=== PATIENT | female | born 2000 | race Caucasian/White ===

== ENCOUNTER 2023-05-01 02:26 | Emergency (ER) | payer BC ==
[2023-05-01 02:47] VITALS: TEMP 97.8
[2023-05-01 03:07] LABS: Basophils % (A) 0 %; Eosinophils # (A) 0.1 k/uL (0-0.7); Eosinophils % (A) 1 %; HCT 37.5 % (34.0-46.0); HGB 12.6 gm/dL (11.4-16.0); Lymphocytes # (A) 2.3 k/uL (1.0-4.8); Lymphocytes % (A) 22 %; MCH 29.3 pg (25.0-35.0); MCHC 33.6 g/dL (31.0-37.0); MCV 87.4 fL (80.0-100.0); Monocytes # (A) 0.5 k/uL (0-1.0); Monocytes % (A) 5 %; Neutrophils # (A) 7.4 k/uL (1.3-7.7); Neutrophils % (A) 71 %; Platelet Count 304 k/uL (150-450); RBC 4.29 m/uL (3.80-5.40); WBC 10.5 k/uL (3.8-10.6)
[2023-05-01 03:15] LABS: ALT 21 U/L (4-34); AST 23 U/L (14-36); African American GFR (CKD) >90 (>60 ml/min/1.73 sqM); Albumin 4.1 g/dL (3.5-5.0); Alkaline Phosphatase 85 U/L (38-126); Anion Gap 7 mmol/L; Blood Urea Nitrogen 15 mg/dL (7-17); Calcium 9.3 mg/dL (8.4-10.2); Carbon Dioxide 22 mmol/L (22-30); Chloride 108 mmol/L (98-107); Glucose 98 mg/dL (74-99); Non-African American GFR(CKD) 89 (>60 ml/min/1.73 sqM); Potassium 3.6 mmol/L (3.5-5.1); Sodium 137 mmol/L (137-145); Total Bilirubin 0.8 mg/dL (0.2-1.3); Total Protein 6.9 g/dL (6.3-8.2)
--- NOTE | 2023-05-01 03:16 | ED ---
Abdominal Pain HPI - General Source: patient Mode of arrival: ambulatory Limitations: no limitations <Erin Baldwin - Last Filed: 05/01/23 04:44> <Nickolas Chavez - Last Filed: 05/01/23 06:58> <Hema Stewart - Last Filed: 05/01/23 08:03> - General Chief Complaint: Abdominal Pain Stated Complaint: 4 weeks abdominal pain Time Seen by Provider: 05/01/23 02:34 - History of Present Illness Initial Comments: 22-year-old female presenting with chief complaint of abdominal pain. Patient is currently 4 weeks LMP April 02. She started having left lower quadrant pain this evening. She states that it now radiates into her back. She states that when she wiped after urinating she noticed a drop or 2 of blood, otherwise no vaginal bleeding. No dysuria, urgency, frequency. No fevers or chills. She admits to some nausea, no vomiting. (Erin Baldwin) - Related Data Previous Rx's Medication Instructions Recorded Cephalexin [Keflex] 500 mg PO Q12HR #20 cap 05/01/23 Allergies Allergy/AdvReac Type Severity Reaction Status Date / Time No Known Allergies Allergy Verified 05/01/23 02:32 Review of Systems ROS Other: All systems not noted in ROS Statement are negative. <Erin Baldwin - Last Filed: 05/01/23 04:44> ROS Other: All systems not noted in ROS Statement are negative. <Nickolas Chavez - Last Filed: 05/01/23 06:58> ROS Other: All systems not noted in ROS Statement are negative. <Hema Stewart - Last Filed: 05/01/23 08:03> ROS Statement: Those systems with pertinent positive or pertinent negative responses have been documented in the HPI. Past Medical History Past Medical History: No Reported History History of Any Multi-Drug Resistant Organisms: None Reported Past Surgical History: No Surgical Hx Reported Past Psychological History: Anxiety, Depression Smoking Status: Never smoker Past Alcohol Use History: None Reported Past Drug Use History: None Reported <Erin Baldwin - Last Filed: 05/01/23 04:44> General Exam Limitations: no limitations General appearance: alert, in no apparent distress Head exam: Present: atraumatic, normocephalic Eye exam: Present: normal appearance, EOMI Neck exam: Present: normal inspection Respiratory exam: Present: normal lung sounds bilaterally. Absent: respiratory distress, wheezes, rales, rhonchi, stridor Cardiovascular Exam: Present: regular rate, normal rhythm, normal heart sounds. Absent: systolic murmur, diastolic murmur, rubs, gallop, clicks GI/Abdominal exam: Present: soft. Absent: distended, tenderness, guarding, rebound, rigid External exam: Present: normal external exam Speculum exam: Present: normal speculum exam By manual exam: Present: normal by manual exam Back exam: Absent: CVA tenderness (R), CVA tenderness (L) Neurological exam: Present: alert, oriented X3 Psychiatric exam: Present: normal affect, normal mood Skin exam: Present: warm, dry <Erin Baldwin - Last Filed: 05/01/23 04:44> Course Vital Signs 05/01/23 05/01/23 05/01/23 02:30 04:09 06:56 Temperature 97.8 F Pulse Rate 93 110 H 80 Respiratory 18 17 18 Rate Blood Pressure 140/92 127/92 130/83 O2 Sat by Pulse 100 98 99 Oximetry Medical Decision Making - Lab Data Result diagrams: 05/01/23 02:58 05/01/23 02:58 <Erin Baldwin - Last Filed: 05/01/23 04:44> - Lab Data Result diagrams: 05/01/23 02:58 05/01/23 02:58 <Nickolas Chavez - Last Filed: 05/01/23 06:58> - Lab Data Result diagrams: 05/01/23 02:58 05/01/23 02:58 <Hema Stewart - Last Filed: 05/01/23 08:03> - Medical Decision Making Was pt. sent in by a medical professional or institution (, PA, GEOSPATIAL EXTRACTOR ANALYSIS, urgent care, hospital, or alf...) When possible be specific @ -No Did you speak to anyone other than the patient for history (EMS, parent, family, police, friend...)? What history was obtained from this source @ -No Did you review nursing and triage notes (agree or disagree)? Why? @ -I reviewed and agree with nursing and triage notes Were old charts reviewed (outside hosp., previous admission, EMS record, old EKG, old radiological studies, urgent care reports/EKG's, alf records)? Report findings @ -No old charts were reviewed Differential Diagnosis (chest pain, altered mental status, abdominal pain women, abdominal pain men, vaginal bleeding, weakness, fever, dyspnea, syncope, headache, dizziness, GI bleed, back pain, seizure, CVA, palpatations, mental health, musculoskeletal)? @ -MDM Differential Abdominal Pain Women: Appendicitis, Cholecystitis, diverticulosis, ischemic bowel, pancreatitis, hepatitis, UTI, gastroenteritis, AAA, incarcerated hernia, bowel obstruction, constipation, inflammatory bowel, hepatitis, peptic ulcer disease, splenic infarction, perforated viscus, vulvitis, ovarian torsion, PID, kidney stone, placenta abruption... This is not meant to be an all-inclusive list EKG interpreted by me (3pts min.). @ -As above X-rays interpreted by me (1pt min.). @ -None done CT interpreted by me (1pt min.). @ -None done U/S interpreted by me (1pt. min.). @ -None done What testing was considered but not performed or refused? (CT, X-rays, U/S, labs)? Why? @ -None What meds were considered but not given or refused? Why? @ -None Did you discuss the management of the patient with other professionals (professionals i.e. , PA, GEOSPATIAL EXTRACTOR ANALYSIS, lab, RT, psych nurse, social insurance administrator, lead game designer, teacher, staff antisubmarine officer, case worker)? Give summary @ -No Was smoking cessation discussed for >3mins.? @ -No Was critical care preformed (if so, how long)? @ -No Were there social determinants of health that impacted care today? How? (Homelessness, low income, unemployed, alcoholism, drug addiction, transportation, low edu. Level, literacy, decrease access to med. care, alf, rehab)? @ -No Was there de-escalation of care discussed even if they declined (Discuss DNR or withdrawal of care, Hospice)? DNR status @ -No What co-morbidities impacted this encounter? (DM, HTN, Smoking, COPD, CAD, Cancer, CVA, ARF, Chemo, Hep., AIDS, mental health diagnosis, sleep apnea, morbid obesity)? @ -None Was patient admitted / discharged? Hospital course, mention meds given and route, prescriptions, significant lab abnormalities, going to OR and other pertinent info. @ -22-year-old female currently 4 weeks presenting with chief complaint of left-sided pelvic pain. Pain started this evening and shoots to the back. LMP April 02 . History of physical exam were conducted. On pelvic exam no bleeding is noted and no adnexal tenderness. Lab work shows hCG of 462. No leukocytosis or anemia. Urine shows large blood. Patient is awaiting ultrasound. Patient is signed out to my attending Dr. Chavez for further management and disposition (Erin Baldwin) Pending ultrasound. Patient care is signed out to Dr. Stewart at 7:00 AM (Nickolas Chavez) Was pt. sent in by a medical professional or institution (, PA, GEOSPATIAL EXTRACTOR ANALYSIS, urgent care, hospital, or alf...) When possible be specific @ -No Did you speak to anyone other than the patient for history (EMS, parent, family, police, friend...)? What history was obtained from this source @ -No Did you review nursing and triage notes (agree or disagree)? Why? @ -I reviewed and agree with nursing and triage notes Were old charts reviewed (outside hosp., previous admission, EMS record, old EKG, old radiological studies, urgent care reports/EKG's, alf records)? Report findings @ -No old charts were reviewed Differential Diagnosis (chest pain, altered mental status, abdominal pain women, abdominal pain men, vaginal bleeding, weakness, fever, dyspnea, syncope, headache, dizziness, GI bleed, back pain, seizure, CVA, palpatations, mental health, musculoskeletal)? @ Differential Abdominal Pain Women: Appendicitis, Cholecystitis, diverticulosis, ischemic bowel, pancreatitis, hepatitis, UTI, gastroenteritis, AAA, incarcerated hernia, bowel obstruction, constipation, inflammatory bowel, hepatitis, peptic ulcer disease, splenic infarction, perforated viscus, vulvitis, ovarian torsion, PID, kidney stone, placenta abruption, this is not meant to be an all-inclusive list EKG interpreted by me (3pts min.). @ -As above X-rays interpreted by me (1pt min.). @ -None done CT interpreted by me (1pt min.). @ -None done U/S interpreted by me (1pt. min.). @ -To sound of the kidneys and bladder shows left-sided hydronephrosis. Ultrasound of the is negative for IUP or adnexal , no free fluid. What testing was considered but not performed or refused? (CT, X-rays, U/S, labs)? Why? @ -None What meds were considered but not given or refused? Why? @ -None Did you discuss the management of the patient with other professionals (isaías bush i.andrew Mack, PA, GEOSPATIAL EXTRACTOR ANALYSIS, lab, RT, psych nurse, social insurance administrator, lead game designer, teacher, staff antisubmarine officer, case worker)? Give summary @ -No Was smoking cessation discussed for >3mins.? @ -No Was critical care preformed (if so, how long)? @ -No Were there social determinants of health that impacted care today? How? (Homelessness, low income, unemployed, alcoholism, drug addiction, transportatio n, low edu. Level, literacy, decrease access to med. care, alf, rehab)? @ -No Was there de-escalation of care discussed even if they declined (Discuss DNR or withdrawal of care, Hospice)? DNR status @ -No What co-morbidities impacted this encounter? (DM, HTN, Smoking, COPD, CAD, Cancer, CVA, ARF, Chemo, Hep., AIDS, mental health diagnosis, sleep apnea, morbid obesity)? @ -None Was patient admitted / discharged? Hospital course, mention meds given and route, prescriptions, significant lab abnormalities, going to OR and other pertinent info. @ -22-year-old female proximal to 4 weeks presents with hematuria and left-sided flank and abdominal pain. Patient well-appearing with stable vitals. She has normal CBC, normal CMP, beta hCG is 460. Urinalysis is positive for both calcium oxalate, hematuria, and rare bacteria. Patient has an ultrasound of the left kidney showed hydronephrosis. Pain likely secondary to obstructing renal colic. CT did not ordered at this time secondary to current . Patient will require repeat beta hCG and close obstetric follow-up. Additionally she will have your urology follow-up. Her pain is managed in the emergency department with Tylenol only. Undiagnosed new problem with uncertain prognosis? @ -No Drug Therapy requiring intensive monitoring for toxicity (Heparin, Nitro, Insulin, Cardizem)? @ -No Were any procedures done? @ -No Diagnosis/symptom? @Abdominal pain and , asymptomatic bacteriuria in , hydronephrosis Acute, or Chronic, or Acute on Chronic? @ -acute Uncomplicated (without systemic symptoms) or Complicated (systemic symptoms)? @ complicated Side effects of treatment? @ -No Exacerbation, Progression, or Severe Exacerbation? @ -No Poses a threat to life or bodily function? How? (Chest pain, USA, PA, pneumonia, PE, COPD, DKA, ARF, appy, cholecystitis, CVA, Diverticulitis, Homicidal, Suicidal, threat to staff... and all critical care pts) @ -[low risk at this time (Hema Stewart) - Lab Data Lab Results 05/01/23 05/01/23 05/01/23 Range/Units 02:58 02:58 02:58 WBC 10.5 (3.8-10.6) k/uL RBC 4.29 (3.80-5.40) m/uL Hgb 12.6 (11.4-16.0) gm/dL Hct 37.5 (34.0-46.0) % MCV 87.4 (80.0-100.0) fL MCH 29.3 (25.0-35.0) pg MCHC 33.6 (31.0-37.0) g/dL RDW 13.0 (11.5-15.5) % Plt Count 304 (150-450) k/uL MPV 8.0 Neutrophils % 71 % Lymphocytes % 22 % Monocytes % 5 % Eosinophils % 1 % Basophils % 0 % Neutrophils # 7.4 (1.3-7.7) k/uL Lymphocytes # 2.3 (1.0-4.8) k/uL Monocytes # 0.5 (0-1.0) k/uL Eosinophils # 0.1 (0-0.7) k/uL Basophils # 0.0 (0-0.2) k/uL Sodium 137 (137-145) mmol/L Potassium 3.6 (3.5-5.1) mmol/L Chloride 108 H (98-107) mmol/L Carbon Dioxide 22 (22-30) mmol/L Anion Gap 7 mmol/L BUN 15 (7-17) mg/dL Creatinine 0.91 (0.52-1.04) mg/dL Est GFR (CKD-EPI)AfAm >90 (>60 ml/min/1.73 sqM) Est GFR (CKD-EPI)NonAf 89 (>60 ml/min/1.73 sqM) Glucose 98 (74-99) mg/dL Plasma Lactic Acid [place] (0.7-2.0) mmol/L Calcium 9.3 (8.4-10.2) mg/dL Total Bilirubin 0.8 (0.2-1.3) mg/dL AST 23 (14-36) U/L ALT 21 (4-34) U/L Alkaline Phosphatase 85 (38-126) U/L Total Protein 6.9 (6.3-8.2) g/dL Albumin 4.1 (3.5-5.0) g/dL HCG, Quant 462.0 mIU/mL Urine Color Yellow Urine Appearance Cloudy H (Clear) Urine pH 6.0 (5.0-8.0) Ur Specific [place] 1.039 H (1.001-1.035) Urine Protein 1+ H (Negative) Urine Glucose (UA) Negative (Negative) Urine Ketones 1+ H (Negative) Urine Blood Large H (Negative) Urine Nitrite Negative (Negative) Urine Bilirubin Negative (Negative) Urine Urobilinogen <2.0 (<2.0) mg/dL Ur Leukocyte Esterase Negative (Negative) Urine RBC >182 H (0-5) /hpf Urine WBC 2 (0-5) /hpf Ur Squamous Epith Cells 16 H (0-4) /hpf Calcium Oxalate Crystal Occasional H (None) /hpf Urine Bacteria Rare H (None) /hpf Urine Mucus Few H (None) /hpf 05/01/23 Range/Units 02:58 WBC (3.8-10.6) k/uL RBC (3.80-5.40) m/uL Hgb (11.4-16.0) gm/dL Hct (34.0-46.0) % MCV (80.0-100.0) fL MCH (25.0-35.0) pg MCHC (31.0-37.0) g/dL RDW (11.5-15.5) % Plt Count (150-450) k/uL MPV Neutrophils % % Lymphocytes % % Monocytes % % Eosinophils % % Basophils % % Neutrophils # (1.3-7.7) k/uL Lymphocytes # (1.0-4.8) k/uL Monocytes # (0-1.0) k/uL Eosinophils # (0-0.7) k/uL Basophils # (0-0.2) k/uL Sodium (137-145) mmol/L Potassium (3.5-5.1) mmol/L Chloride (98-107) mmol/L Carbon Dioxide (22-30) mmol/L Anion Gap mmol/L BUN (7-17) mg/dL Creatinine (0.52-1.04) mg/dL Est GFR (CKD-EPI)AfAm (>60 ml/min/1.73 sqM) Est GFR (CKD-EPI)NonAf (>60 ml/min/1.73 sqM) Glucose (74-99) mg/dL Plasma Lactic Acid [place] 1.1 (0.7-2.0) mmol/L Calcium (8.4-10.2) mg/dL Total Bilirubin (0.2-1.3) mg/dL AST (14-36) U/L ALT (4-34) U/L Alkaline Phosphatase (38-126) U/L Total Protein (6.3-8.2) g/dL Albumin (3.5-5.0) g/dL HCG, Quant mIU/mL Urine Color Urine Appearance (Clear) Urine pH (5.0-8.0) Ur Specific [place] (1.001-1.035) Urine Protein (Negative) Urine Glucose (UA) (Negative) Urine Ketones (Negative) Urine Blood (Negative) Urine Nitrite (Negative) Urine Bilirubin (Negative) Urine Urobilinogen (<2.0) mg/dL Ur Leukocyte Esterase (Negative) Urine RBC (0-5) /hpf Urine WBC (0-5) /hpf Ur Squamous Epith Cells (0-4) /hpf Calcium Oxalate Crystal (None) /hpf Urine Bacteria (None) /hpf Urine Mucus (None) /hpf Disposition <Erin Baldwin - Last Filed: 05/01/23 04:44> <Nickolas Chavez - Last Filed: 05/01/23 06:58> Is patient prescribed a controlled substance at d/c from ED?: No Time of Disposition: 08:02 <TerryHema Wisam - Last Filed: 05/01/23 08:03> Clinical Impression: Hydronephrosis, , Asymptomatic bacteriuria during Disposition: HOME SELF-CARE Condition: Fair Instructions (If sedation given, give patient instructions): Urinary Tract Infection in Women (ED), Kidney Stones (ED), (ED) Prescriptions: Cephalexin [Keflex] 500 mg PO Q12HR #20 cap Referrals: Suzy Wild DO [Primary Care Provider] - 1-2 days Murphy Briscoe MD [STAFF PHYSICIAN] - 1-2 days
[2023-05-01 04:18] LABS: Appearance,Urine Cloudy (Clear); Bacteria,Urine Rare /hpf; Bilirubin,Urine Negative (Negative); Blood,Urine Large (Negative); Calcium Oxalate Crystals,Urine Occasional /hpf; Color,Urine Yellow; Glucose,Urine (UA) Negative (Negative); Ketones,Urine 1+ (Negative); Leukocyte Esterase,Urine Negative (Negative); Mucus,Urine Few /hpf; Nitrite,Urine Negative (Negative); Protein,Urine 1+ (Negative); RBC,Urine >182 /hpf (0-5); Specific Gravity,Urine 1.039 (1.001-1.035); Squamous Epithelial Cell,Urine 16 /hpf (0-4); Urobilinogen,Urine <2.0 mg/dL (<2.0); WBC,Urine 2 /hpf (0-5)
[2023-05-01] MEDS ORDERED: ACETAMINOPHEN TAB 500 MG TAB PO STA (04:42)
--- NOTE | 2023-05-01 07:39 | US ---
EXAMINATION TYPE: Transabdominal DATE OF EXAM: 05/01/2023 7:25 AM COMPARISON: NONE CLINICAL INDICATION: Female, 22 years old with history of L sided pelvic pain; Pt states LLQ pain x f ew months EXAM PERFORMED: Transabdominal (TA) EXAM MEASUREMENTS: GESTATIONAL AGE / DATING Physician Established: Not yet established Dates by LMP: (4 weeks/1 days) EDC: 01/07/2024 Dates by First Scan: No previous this is first scan Dates by Current Scan for: No IUP seen at this time MATERNAL ANATOMY Uterus: 7.9 x 3.6 x 4.7 cm Right Ovary: 4.0 x 3.4 x 2.4 cm Left Ovary: 3.2 x 2.5 x 1.7 cm Post CDS / Adnexa: wnl Presence of free fluid: No Presence of corpus luteal cyst: Right Ovary= 2.2 x 1.4 x 2.1 cm Presence of subchorionic bleed: No GESTATION / SURVEY IUP: No IUP seen at this time Date of LMP: 04/02/2023 Beta HcG (if available): 462 No IUP seen at this time Endo thickness= 1.0 cm IMPRESSION: 1. No intrauterine identified. 2. No adnexal abnormality. 3. No free fluid in the cul-de-sac. 4. Given the beta hCG of 462 and a last menstrual period of 4 weeks and 1 day, the findings could rep resent early IUP or ectopic . Short-term follow-up is recommended.
--- NOTE | 2023-05-01 07:40 | US ---
EXAMINATION TYPE: US kidneys/renal and bladder DATE OF EXAM: 05/01/2023 COMPARISON: NONE CLINICAL INDICATION: Female, 22 years old with history of left flank pain; Pt states LLQ pain that ra diates to back on/off for months EXAM MEASUREMENTS: Right Kidney: 10.9 x 4.8 x 5.1 cm Left Kidney: 11.9 x 6.7 x 6.4 cm Morbidly obese pt Right Kidney: wnl Left Kidney: Mild to moderate hydro visualized Bladder: wnl Bilateral Jets seen: No IMPRESSION: 1. Marked left hydronephrosis. 2. Normal right kidney.
[2023-05-01] MEDS ORDERED: cefTRIAXone IN SWFI 1,000 MG/10 ML SYRINGE IVP STA (07:51)
[2023-05-01 08:48] VITALS: BP 140/86; PULSE 86; RESP 16
== END 2023-05-01 08:25 | disposition home or self-care (01) ==
LOC: EC 02:26
DX: O26.831 Pregnancy related renal disease, first trimester (principal); N13.30 Unspecified hydronephrosis; O23.91 Unspecified genitourinary tract infection in pregnancy, first trimester; R82.71 Bacteriuria; Z86.59 Personal history of other mental and behavioral disorders; Z3A.01 Less than 8 weeks gestation of pregnancy
CPT/HCPCS: 36415; 76770; 76801; 80053; 81001; 83605; 84702; 85025; 87086; 99284

== ENCOUNTER 2023-10-09 22:59 | Outpatient (CLI) | payer BC ==
[2023-10-10 00:16] VITALS: BP 119/66; PULSE 87; RESP 18; TEMP 97.8
--- NOTE | 2023-11-04 09:31 | P.MSEPDOC ---
Presenting Problems - Arrival Data Date of Arrival on Unit: 10/09/23 Time of Arrival on Unit: 22:59 Mode of Transport: Ambulatory - Complaint OB-Reason for Admission/Chief Complaint: Decreased Movement Comment: x2 days Medical History - Information : 1 Para: 0 Term: 0 : 0 Abortions: Spontaneous or Elective: 0 Number of Living Children: 0 - Gestational Age Gestational Age by JANNETH (wks/days): 27 Weeks and 2 Days Review of Systems - Review of Systems Constitutional: No problems Breast: No problems ENT: No problems Cardiovascular: No problems Respiratory: No problems Gastrointestinal: No problems Genitourinary: No problems Musculoskeletal: No problems Neurological: No problems Skin: No problems Comment: depression- medicated. heart palpitations- medicated. Vital Signs - Temperature Temperature: 97.8 F Temperature Source: Temporal Artery Scan - Pulse Right Pulse Rate: 87 Pulse Assessment Method: Pulse Oximetry - Respirations Respiratory Rate: 18 Oxygen Delivery Method: Room Air O2 Sat by Pulse Oximetry: 99 - Blood Pressure Right Arm Blood Pressure: 119/66 Blood Pressure Mean: 83 Blood Pressure Source: Automatic Cuff Medical Screen Scoring - Assessment - Baby A Baseline FHR: 130 Heart Rate - NICHD Category: Category I (Normal) NST: Reactive Physician Notification - Physician Notified Physician Notified Date: 10/09/23 Physician Notified Time: 23:52 Physician: Melissa Andujar New Order Received: Yes - Notification Comment Comment: reported on pts c/o decreased fm x2 days. see obix notes for further detail. orders given to d/c pt home at this time with education / instructions, and keep scheduled appt in office Maternal Triage Index - Maternal Triage Index Presenting for scheduled procedure w/no complaint: No - Stat/Priority 1 Stat Priority 1: No - Urgent/Priority 2 Urgent Priority 2: Yes Provider Notified: Melissa Andujar Provider Notified Time: 23:52 Criteria Met for Priority 2: decreased fm x2 days Disposition - Disposition OB Disposition: Discharge to home Discharge Date: 10/10/23 Discharge Time: 00:03 I agree with the RN Medical Screening Exam: Yes Case reviewed; plan agreed upon as documented in EMR&OBIX.: Yes Diagnosis: DECREASED MOVEMENTS, SECOND TRIMESTER, FETUS 1
== END 2023-10-10 00:06 | disposition home or self-care (01) ==
LOC: FBPOP 22:59
PROVIDERS: ATTEND Obstetrics & Gynecology Obstetrics
DX: O36.8121 Decreased fetal movements, second trimester, fetus 1 (principal); Z3A.27 27 weeks gestation of pregnancy
CPT/HCPCS: 99213

== ENCOUNTER 2023-12-25 18:07 | Outpatient (CLI) | payer BC ==
[2023-12-25 18:47] VITALS: BP 128/77; PULSE 93; RESP 16; TEMP 96.1
--- NOTE | 2024-01-26 09:30 | P.MSEPDOC ---
Presenting Problems - Arrival Data Date of Arrival on Unit: 12/25/23 Time of Arrival on Unit: 18:07 Mode of Transport: Ambulatory - Complaint OB-Reason for Admission/Chief Complaint: Decreased Movement Comment: pt. presents to triage due to decrease movmement, pt. stats she last felt a slight movment around 20min ago but since then nothing since 1030 this morning. Medical History - Information : 1 Para: 0 Term: 0 : 0 Abortions: Spontaneous or Elective: 0 Number of Living Children: 0 - Gestational Age Gestational Age by JANNETH (wks/days): 38 Weeks and 1 Days Review of Systems - Review of Systems Constitutional: No problems Breast: No problems ENT: No problems Cardiovascular: No problems Respiratory: No problems Gastrointestinal: No problems Genitourinary: No problems Musculoskeletal: No problems Neurological: No problems Skin: No problems Vital Signs - Temperature Temperature: 96.1 F Temperature Source: Temporal Artery Scan - Pulse Pulse Oximetery Pulse Rate: 93 Pulse Assessment Method: Automatic Cuff - Respirations Respiratory Rate: 16 Oxygen Delivery Method: Room Air O2 Sat by Pulse Oximetry: 98 - Blood Pressure Right Arm Blood Pressure: 128/77 Blood Pressure Mean: 94 Blood Pressure Source: Automatic Cuff Medical Screen Scoring - Assessment - Baby A Baseline FHR: 130 Heart Rate - NICHD Category: Category I (Normal) NST: Reactive Physician Notification - Physician Notified Physician Notified Date: 12/25/23 Physician Notified Time: 18:33 Physician: Melissa Andujar New Order Received: Yes - Notification Comment Comment: reactive NST, cat 1 FHTs, pt. has felt baby move since present to triage Maternal Triage Index - Maternal Triage Index Presenting for scheduled procedure w/no complaint: No - Stat/Priority 1 Stat Priority 1: No - Urgent/Priority 2 Urgent Priority 2: Yes Provider Notified: Melissa Andujar Provider Notified Time: 18:33 Criteria Met for Priority 2: 38.1 c/o decrease movement Disposition - Disposition OB Disposition: Discharge to home Discharge Date: 12/25/23 Discharge Time: 18:36 I agree with the RN Medical Screening Exam: Yes Case reviewed; plan agreed upon as documented in EMR&OBIX.: Yes Diagnosis: DECREASED MOVEMENTS, THIRD TRIMESTER, FETUS 1
== END 2023-12-25 18:36 | disposition home or self-care (01) ==
LOC: FBPOP 18:07
PROVIDERS: ATTEND Obstetrics & Gynecology Obstetrics
CPT/HCPCS: 59025; 99213

== ENCOUNTER 2023-12-26 11:51 | Outpatient (CLI) | payer BC ==
[2023-12-26 12:42] LABS: Appearance,Urine Clear (Clear); Basophils % (A) 0 %; Bilirubin,Urine Negative (Negative); Blood,Urine Negative (Negative); Color,Urine Colorless; Eosinophils # (A) 0.1 k/uL (0-0.7); Eosinophils % (A) 1 %; Glucose,Urine (UA) Negative (Negative); HCT 32.8 % (34.0-46.0); HGB 10.7 gm/dL (11.4-16.0); Ketones,Urine Negative (Negative); Leukocyte Esterase,Urine Negative (Negative); Lymphocytes # (A) 1.2 k/uL (1.0-4.8); Lymphocytes % (A) 16 %; MCH 28.9 pg (25.0-35.0); MCHC 32.7 g/dL (31.0-37.0); MCV 88.5 fL (80.0-100.0); Mean Platelet Volume 9.4; Monocytes # (A) 0.3 k/uL (0-1.0); Monocytes % (A) 4 %; Neutrophils # (A) 5.6 k/uL (1.3-7.7); Neutrophils % (A) 78 %; Nitrite,Urine Negative (Negative); Platelet Count 215 k/uL (150-450); Protein,Urine Negative (Negative); RBC 3.71 m/uL (3.80-5.40); RDW 14.2 % (11.5-15.5); Specific Gravity,Urine 1.007 (1.001-1.035); Urobilinogen,Urine <2.0 mg/dL (<2.0); WBC 7.3 k/uL (3.8-10.6)
[2023-12-26 12:59] LABS: ALT 11 U/L (4-34); AST 18 U/L (14-36); African American GFR (CKD) >90 (>60 ml/min/1.73 sqM); Blood Urea Nitrogen 6 mg/dL (7-17); LDH 140 U/L (120-246); Non-African American GFR(CKD) >90 (>60 ml/min/1.73 sqM); Uric Acid 5.6 mg/dL (3.7-7.4)
[2023-12-26 14:47] LABS: Creatinine,Urine Random 49.1 mg/dL; Protein/Creatinine Ratio,Urine 0.326
[2023-12-26 15:17] VITALS: BP 124/76; PULSE 91; RESP 16; TEMP 97.2
--- NOTE | 2024-01-03 20:46 | P.MSEPDOC ---
Presenting Problems - Arrival Data Date of Arrival on Unit: 12/26/23 Time of Arrival on Unit: 11:50 Mode of Transport: Ambulatory - Complaint OB-Reason for Admission/Chief Complaint: Other Comment: Patient sent from OB office for PIH labs and blood pressures. Medical History - Information : 1 Para: 0 Term: 0 : 0 Abortions: Spontaneous or Elective: 0 Number of Living Children: 0 - Gestational Age Gestational Age by JANNETH (wks/days): 38 Weeks and 2 Days Review of Systems - Review of Systems Constitutional: No problems Breast: No problems ENT: No problems Cardiovascular: No problems Respiratory: No problems Gastrointestinal: No problems Genitourinary: No problems Musculoskeletal: No problems Neurological: No problems Skin: No problems Vital Signs - Temperature Temperature: 97.2 F Temperature Source: Temporal Artery Scan - Pulse Pulse Oximetery Pulse Rate: 91 Pulse Assessment Method: Pulse Oximetry - Respirations Respiratory Rate: 16 Oxygen Delivery Method: Room Air O2 Sat by Pulse Oximetry: 97 - Blood Pressure Right Arm Blood Pressure: 124/76 Blood Pressure Mean: 92 Blood Pressure Source: Automatic Cuff Medical Screen Scoring - Uterine Contractions Intensity: Absent Resting: Soft to palpation - Assessment - Baby A Baseline FHR: 130 Heart Rate - NICHD Category: Category I (Normal) NST: Reactive Physician Notification - Physician Notified Physician Notified Date: 12/26/23 Physician Notified Time: 14:40 Physician: Josy Renteria Order Received: Yes - Notification Comment Comment: Call placed to Dr Renteria, report given on all labs except urine protein/creatine ratio which is unavailable at this time (lab is unsure how long it will be before the results will be available) Orders received to discharge the patient home at this time, patient is to keep scheduled appointment for scheduled induction on tuesday. Maternal Triage Index - Non-Urgent/Priority 4 Non-Urgent Priority 4: Yes Criteria Met for Priority 4: Patient sent from Dr Renteria's office with orders for PIH labs and UA. Patient states she had a high blood pressure in the office. Patient denies bleeding or loss of fluid. Disposition - Disposition OB Disposition: Discharge to home Discharge Date: 12/26/23 Discharge Time: 14:44 I agree with the RN Medical Screening Exam: Yes Physician's MSE Comment: I have neither seen nor examined the patient Case reviewed; plan agreed upon as documented in EMR&OBIX.: Yes Diagnosis: GESTATIONAL HTN W/O SIGNIFICANT PROTEINURIA, THIRD TRIMESTER
== END 2023-12-26 14:44 | disposition home or self-care (01) ==
LOC: FBPOP 11:51
PROVIDERS: ATTEND Obstetrics & Gynecology
CPT/HCPCS: 36415; 59025; 81003; 82565; 82570; 83615; 84156; 84450; 84460; 84520; 84550; 85025; 99213

== ENCOUNTER 2024-01-02 05:47 | Inpatient (IN) | payer BC ==
[2024-01-02] MEDS ORDERED: miSOPROStoL 200 MCG TAB RECTAL PRN (05:59)
[2024-01-02] MEDS ORDERED: LIDOCAINE 0.5% (PF) 5 MG/ML (50 ML SDV) SQ PRN (05:59)
[2024-01-02] MEDS ORDERED: METHYLERGONOVINE 0.2 MG/ML 1 ML AMP IM PRN ×2 (05:59→19:43)
[2024-01-02] MEDS ORDERED: TERBUTALINE 1 MG/ML VIAL SQ PRN (05:59)
[2024-01-02] MEDS ORDERED: CARBOPROST TROMETHAMINE 250 MCG/ML 1 ML AMP IM PRN ×2 (05:59→19:43)
[2024-01-02] MEDS ORDERED: OXYTOCIN 10 UNIT/ML 1 ML VIAL IM PRN ×2 (05:59→19:43)
[2024-01-02] MEDS ORDERED: TRANEXAMIC 1,000 MG/100ML-NACL 1,000 MG in EMPTY BAG 1 BAG IV PRN ×2 (05:59→19:43)
[2024-01-02] MEDS ORDERED: miSOPROStoL 200 MCG TAB PO PRN ×2 (05:59→19:43)
[2024-01-02] MEDS: LACTATED RINGERS 1,000 ML IV SCH (06:26)
[2024-01-02 06:38] LABS: Basophils % (A) 0 %; Eosinophils # (A) 0.1 k/uL (0-0.7); Eosinophils % (A) 1 %; HCT 34.7 % (34.0-46.0); HGB 11.1 gm/dL (11.4-16.0); Lymphocytes # (A) 1.8 k/uL (1.0-4.8); Lymphocytes % (A) 21 %; MCH 28.1 pg (25.0-35.0); MCHC 31.8 g/dL (31.0-37.0); MCV 88.2 fL (80.0-100.0); Mean Platelet Volume 9.9; Monocytes # (A) 0.4 k/uL (0-1.0); Monocytes % (A) 5 %; Neutrophils # (A) 6.2 k/uL (1.3-7.7); Neutrophils % (A) 71 %; Platelet Count 249 k/uL (150-450); RBC 3.93 m/uL (3.80-5.40); RDW 14.3 % (11.5-15.5); WBC 8.7 k/uL (3.8-10.6)
[2024-01-02] MEDS: OXYTOCIN 30 UNITS/500 ML NS 30 UNIT in SALINE 1 500ML.BAG IV SCH (07:23)
--- NOTE | 2024-01-02 08:56 | P.HPOB ---
History of Present Illness H&P Date: 01/02/24 Chief Complaint: induction of labor Ms. Sylvester is a 23 year old at 39 weeks and 2 days with EDC of 01/07/2024 by LMP consistent with 8 week US who presents for induction of labor. Her has been complicated by maternal tachycardia and palpitations, for which she has been on metoprolol managed by her PCP. The patient also suffers from anxiety and depression for which she takes Fluoxetine 40mg daily. The fetus is estimated to be in the 53%ile by a 32 week US. work-up: B positive, antibody screen negative, rubella non-immune, VDRL non-reactive, HBsAg negative, HIV negative, HCV Ab non-reactive, gonorrhea negative, chlamydia negative, 1 hour GTT wnl, GBS negative. s/p TDap. Past Medical History Past Medical History: No Reported History History of Any Multi-Drug Resistant Organisms: None Reported Past Surgical History: No Surgical Hx Reported Additional Past Surgical History / Comment(s): Wissdom tooth removal Past Anesthesia/Blood Transfusion Reactions: No Reported Reaction Past Psychological History: Anxiety, Depression Smoking Status: Never smoker Past Alcohol Use History: None Reported Past Drug Use History: None Reported Medications and Allergies Home Medications Medication Instructions Recorded Confirmed Type Aspirin 81 mg PO DAILY 10/09/23 12/26/23 History FLUoxetine HCL [PROzac] 40 mg PO DAILY 10/09/23 12/26/23 History Metoprolol Tartrate [Lopressor] 12.5 mg PO DAILY 10/09/23 12/26/23 History Vit No.179/Iron/Folic 1 each PO DAILY 10/09/23 12/26/23 History [ Tablet] Allergies Allergy/AdvReac Type Severity Reaction Status Date / Time No Known Allergies Allergy Verified 01/02/24 05:58 Exam Intake and Output 01/01/24 01/02/24 01/02/24 22:59 06:59 14:59 Other: # Voids 1 Weight 131.995 kg Focused physical exam is performed. This is a healthy-appearing in no apparent distress. Breathing is non-labored. Abdomen is gravid and non-tender. Cervical exam is 2.5 cm, 70% effacement, -2 station. AROM is undertaken with clear fluid noted. Extremities non-tender and non-edematous. heart tones are Category I and tocometer is graphing contractions every 2-4 minutes. Results Result Diagrams: 01/02/24 06:10 Abnormal Lab Results - Last 24 Hours (Table) 01/02/24 Range/Units 06:10 Hgb 11.1 L (11.4-16.0) gm/dL Assessment and Plan Assessment: 23 year old at 39 weeks and 2 days presenting for IOL Plan: Admit, clear liquid diet, pitocin per protocol, s/p AROM, continuous EFM and tocometer, epidural prn.
[2024-01-02] MEDS ORDERED: NALBUPHINE 10 MG/ML (10 ML MDV) IV PRN (09:02)
[2024-01-02] MEDS ORDERED: SODIUM CHLORIDE 0.9% 250 ML BAG ONE (12:49)
[2024-01-02] MEDS ORDERED: fentaNYL (PF) 50 MCG/ML 5 ML AMP ONE (12:49)
[2024-01-02] MEDS ORDERED: ROPIVACAINE 5 MG/ML 30 ML VIAL ONE (12:49)
[2024-01-02] MEDS: CITRIC ACID-SODIUM CITRATE 15 ML CUP PO ONE (19:56)
[2024-01-02] MEDS: ceFAZolin 3 GM in SODIUM CHLORIDE 0.9% 100 ML IVPB ONE (19:56)
[2024-01-02] MEDS ORDERED: KETOROLAC 30 MG/ML 1 ML VIAL ONE (20:06)
[2024-01-02] MEDS ORDERED: diphenhydrAMINE 50 MG/ML 1 ML VIAL ONE (20:06)
[2024-01-02] MEDS ORDERED: NALBUPHINE 10 MG/ML (10 ML MDV) ONE (20:06)
[2024-01-02] MEDS ORDERED: MORPHINE SULFATE (PF) 0.3 MG/0.3 ML SYR ONE (20:06)
[2024-01-02] MEDS ORDERED: ONDANSETRON 4 MG/2 ML VIAL ONE (20:06)
[2024-01-02] MEDS ORDERED: PHENYLEPHRINE-0.9% NACL SYG 1,000 MCG/10 ML SYRINGE ONE (20:06)
[2024-01-02] MEDS ORDERED: OXYTOCIN 30 UNITS/500 ML NS BAG IV ONE (20:06)
[2024-01-02] MEDS ORDERED: ONDANSETRON 4 MG/2 ML VIAL IVP PRN (21:02)
[2024-01-02] MEDS ORDERED: METOCLOPRAMIDE 5 MG/ML 2 ML VIAL IVP PRN (21:02)
[2024-01-02] MEDS ORDERED: diphenhydrAMINE 50 MG/ML 1 ML VIAL IVP PRN ×2 (21:02)
[2024-01-02] MEDS ORDERED: diphenhydrAMINE 50 MG CAP PO PRN (21:02)
[2024-01-02] MEDS ORDERED: NALOXONE 0.4 MG/ML 1 ML VIAL IV PRN (21:02)
[2024-01-02] MEDS ORDERED: ZOLPIDEM 5 MG TAB PO PRN (21:02)
[2024-01-02] MEDS ORDERED: diphenhydrAMINE 25 MG CAP PO PRN (21:02)
--- NOTE | 2024-01-02 21:02 | P.OP ---
Date of Procedure: 01/02/24 Preoperative Diagnosis: 1. Term IUP at 39 weeks and 2 days 2. Suboptimal pain control in labor 3. Maternal request for section Postoperative Diagnosis: Same Procedure(s) Performed: Primary Lower Transverse Section Implants: None Anesthesia: spinal Surgeon: Josy Renteria Account Developer #1: Shalini Barry Estimated Blood Loss (ml): 813 IV fluids (ml): 900 Urine output (ml): 300 Pathology: none sent Condition: stable Disposition: floor Indications for Procedure: Ms. Sylvester is a 23 year old at 39 weeks and 2 days being electively inducted. After reaching 4 centimeters with ruptured membranes, the patient had suboptimal pain control over several hours despite two attempted epidural placements. At this point, the patient was offered nitrous oxide for pain management. However, she declined this and requested a section. The risks, benefits, and alternatives to section were discussed with the patient including risk of bleeding, infection, damage to surrounding structures including bladder/bowels/ureters, and post-operative VTE. The patient understands these risks and desires to proceed with section. Operative Findings: Colorless amniotic fluid. Viable male infant right occiput transverse presentation. Apgars 8/9. Weight 7 pounds and 14 ounces (3560 grams). Normal uterus, bilateral fallopian tubes, and ovaries. Description of Procedure: The patient was taken back to the operating room where spinal anesthesia was found to be adequate. 3g grams of Ancef and 500mg of Azithromycin were given for infection prophylaxis. She was prepared and draped in the dorsal supine position with a leftward tilt. A Pfannenstiel skin incision was made with the scalpel. The incision was carried down to the fascia with a bovie. The fascia was incised and extended laterally with Lee scissors. The superior aspect of the fascia was grasped with the Roger clamps. The underlying rectus muscle was dissected off sharply with Lee scissors. In a similar fashion, the inferior aspect of the fascia was elevated with Roger clamps and the rectus muscle and pyramidalis were dissected off. Excellent hemostasis was achieved with the bovie. The rectus muscle was in the midline down to the level of the pubic symphysis. Pre-peritoneal fatty tissue was bluntly dissected to expose the peritoneum. The peritoneum was found to be free of adherent bowel and entered sharply with Lee scissors. The peritoneal incision was extended superiorly and inferiorly to the bladder reflection with good visualization of the bladder. The bladder blade was inserted and vesicouterine peritoneum was identified. Intraabdominal survey revealed scant, clear peritoneal fluid and the thinned-out lower uterine segment. The bladder blade was positioned to keep the bladder out of the operative field. The lower uterine segment was incised with a scalpel. The amniotic sac was ruptured with an Allis clamp and clear fluid was noted. The uterine incision was extended bluntly with lateral and upward traction. The fetus was in cephalic presentation. The head was elevated out of the pelvis with special attention paid to avoid using the uterine incision as a fulcrum. Gentle fundal pressure was applied once the head was brought into the incision. The infant was delivered with no difficulty and was noted to be crying spontaneously. The mouth and nose were suctioned with a bulb. The cord was clamped and cut. The was handed off to the edge sander. IV oxytocin was initiated to facilitate uterine contractions. The placenta was delivered intact with manual massage of uterine fundus. The uterus was then exteriorized and the inside of the uterus was gently wiped with a lap sponge to assure complete removal of placental membranes. The uterine incision was closed with 0-Vicryl suture in a running locked fashion. A second imbricating layer was placed with 0-Vicryl. The ovaries and tubes were found to be normal. The uterus, tubes, and ovaries were then gently returned to the abdominal cavity. The abdomen was copiously suction irrigated. The uterine incision was reinspected and excellent hemostasis was noted. The fascial layer was closed with a 0-Vicryl suture. The subcutaneous tissue was reapproximated with 2-0 Plain Gut. The skin was closed with 4-0 Monocryl in a subcuticular fashion.The patient tolerated the procedure well. All the counts were correct times two. The patient was taken to the recovery room in a stable condition. A physician rn surgical pcu was utilized for the entire procedure due to the need for tissue retraction, dissection of vital structures, prevention and management of blood loss, and reduction in overall operative and anesthesia time as is the standard of care.
[2024-01-02] MEDS: AZITHROMYCIN 500 MG in SODIUM CHLORIDE 0.9% 250 ML IVPB STA (21:16)
[2024-01-02] MEDS: METOPROLOL TARTRATE 12.5 MG TAB PO SCH (23:34)
[2024-01-02] MEDS: FLUoxetine HCL 20 MG CAP PO SCH (23:34)
[2024-01-03] MEDS: LACTATED RINGERS 1,000 ML IV ONE (00:30)
[2024-01-03] MEDS: ACETAMINOPHEN TAB 500 MG TAB PO SCH (00:32)
[2024-01-03] MEDS: ACETAMINOPHEN IV (For NPO) 1,000 MG in EMPTY BAG 1 BAG IVPB SCH (01:08)
[2024-01-03] MEDS: KETOROLAC 15 MG/ML 1 ML VIAL IVP SCH (03:37)
[2024-01-03] MEDS: LACTATED RINGERS 1,000 ML IV SCH (03:37)
[2024-01-03] MEDS: IBUPROFEN 600 MG TAB PO SCH (03:38)
[2024-01-03 06:17] LABS: Basophils % (A) 0 %; Eosinophils # (A) 0.1 k/uL (0-0.7); Eosinophils % (A) 1 %; HCT 31.1 % (34.0-46.0); HGB 10.1 gm/dL (11.4-16.0); Lymphocytes # (A) 1.1 k/uL (1.0-4.8); Lymphocytes % (A) 10 %; MCH 28.9 pg (25.0-35.0); MCHC 32.6 g/dL (31.0-37.0); MCV 88.8 fL (80.0-100.0); Mean Platelet Volume 9.3; Monocytes # (A) 0.5 k/uL (0-1.0); Monocytes % (A) 4 %; Neutrophils # (A) 9.4 k/uL (1.3-7.7); Neutrophils % (A) 84 %; Platelet Count 176 k/uL (150-450); RDW 14.1 % (11.5-15.5); WBC 11.2 k/uL (3.8-10.6)
--- NOTE | 2024-01-03 08:36 | P.PN ---
Progress Note - Text Adequate analgesia. No complications from spinal Duramorph.
--- NOTE | 2024-01-03 08:53 | P.PNOBGPC ---
Subjective - Subjective Principal diagnosis: s/p primary section Interval history: The patient is doing well this morning and had no acute events overnight. She has no complaints this morning. She reports minimal lochia, passing flatus. Awaiting void after mayo removal at 0400 this morning. Patient has yet to ambulate but plans to today. She has not had anything to eat or drink yet. She is formula-feeding her infant without difficulty. She denies chest pain, shortness of breathing, fevers, or chills overnight. She denies pain or swelling in the legs. Patient reports: Reports appetite normal, Reports pain well controlled, Reports ambulating normally : doing well Objective - Vital Signs Latest vital signs: Vital Signs Temp Pulse Resp BP Pulse Ox 01/03/24 08:30 98.1 F 98 16 125/82 97 01/03/24 03:15 98.1 F 102 H 16 126/81 95 01/02/24 23:07 87 16 123/70 98 01/02/24 22:52 93 16 129/71 99 01/02/24 22:37 88 16 124/71 99 01/02/24 22:22 90 16 124/72 99 01/02/24 22:07 92 16 125/74 97 01/02/24 21:52 97.5 F L 78 16 125/71 97 01/02/24 21:37 93 16 127/67 98 01/02/24 21:22 95 16 125/61 98 01/02/24 21:07 100 16 149/98 97 Intake and Output 01/02/24 01/03/24 01/03/24 22:59 06:59 14:59 Output Total 1113 1636 Balance -1113 -1636 Output: Urine 300 700 Uretheral (Mayo) 100 Estimated Blood Loss 813 813 Output, Quantitative 123 Blood Loss Other: Voiding Method Indwelling Catheter - Exam Extremities: Present: normal Abdomen: Present: normal appearance, soft Incision: Present: normal, dry, intact, dressed Uterus: Present: normal, firm - Labs Labs: Abnormal Lab Results - Last 24 Hours (Table) 01/03/24 Range/Units 06:03 WBC 11.2 H (3.8-10.6) k/uL RBC 3.50 L (3.80-5.40) m/uL Hgb 10.1 L (11.4-16.0) gm/dL Hct 31.1 L (34.0-46.0) % Neutrophils # 9.4 H (1.3-7.7) k/uL Assessment and Plan Assessment: 23 year old now POD#1 s/p primary section by maternal request Plan: 1. Postoperative. Patient meeting milestones appropriately. Ambulation encouraged. Await spontaneous void. 2. Viable male . Doing well at bedside. Dispo: Continue inpatient management. Anticipate discharge home tomorrow on POD #2.
[2024-01-03] MEDS ORDERED: FLUoxetine HCL 20 MG CAP PO SCH (09:00)
[2024-01-03] MEDS: SENNOSIDES-DOCUSATE SODIUM 1 EACH TAB PO SCH (11:16)
[2024-01-03] MEDS: MEASLES-MUMPS-RUBELLA VACC/PF 12,500 UNIT/0.5 ML VIAL SQ ONE (15:03)
[2024-01-04 08:42] VITALS: BP 135/75; PULSE 95; RESP 18; TEMP 97.8
--- NOTE | 2024-01-04 08:48 | P.DS ---
Providers Date of admission: 01/02/24 05:47 Expected date of discharge: 01/04/24 Attending physician: Josy Renteria MD Primary care physician: Stated None Hospital Course: Ms. Sylvester is a 23 year old now POD#2 s/p primary section by maternal request. The patient is doing well this morning and had no acute events overnight. She has no complaints this morning. She reports minimal lochia, passing flatus, voiding without difficulty, ambulating, and eating/drinking without nausea or vomiting. doing well at bedside, s/p circumcision. She denies chest pain, shortness of breathing, fevers, or chills overnight. She denies pain or swelling in the legs. Postoperative restrictions are reviewed with the patient including pelvic rest for 6 weeks, no lifting heavier than 15 pounds for 6 weeks. The patient is encouraged to call the office if she experiences any heavy bleeding, foul-smelling discharge, breast complaints, or any if she has any other concerns. She will follow up in the office with in 2 weeks for postoperative exam. All questions are answered. Assessment: 23 year old now POD#2 s/p primary section Patient Condition at Discharge: Good Plan - Discharge Summary New Discharge Prescriptions: New Ibuprofen [Motrin] 600 mg PO Q6HR PRN #30 tab PRN Reason: Mild Pain (Scale 1 To 3) polyethylene glycoL 3350 [Miralax] 17 gm PO DAILY PRN #527 gm PRN Reason: Constipation Acetaminophen Tab [Tylenol] 650 mg PO Q6H PRN #30 tab PRN Reason: Mild Pain (Scale 1 To 3) No Action FLUoxetine HCL [PROzac] 40 mg PO DAILY Vit No.179/Iron/Folic [ Tablet] 1 each PO DAILY Aspirin 81 mg PO DAILY Metoprolol Tartrate [Lopressor] 12.5 mg PO DAILY Discharge Medication List Aspirin 81 mg PO DAILY 10/09/23 [History] FLUoxetine HCL [PROzac] 40 mg PO DAILY 10/09/23 [History] Metoprolol Tartrate [Lopressor] 12.5 mg PO DAILY 10/09/23 [History] Vit No.179/Iron/Folic [ Tablet] 1 each PO DAILY 10/09/23 [History] Acetaminophen Tab [Tylenol] 650 mg PO Q6H PRN #30 tab 01/04/24 [Rx] Ibuprofen [Motrin] 600 mg PO Q6HR PRN #30 tab 01/04/24 [Rx] polyethylene glycoL 3350 [Miralax] 17 gm PO DAILY PRN #527 gm 01/04/24 [Rx] Follow up Appointment(s)/Referral(s): Josy Renteria MD [STAFF PHYSICIAN] - 02/13/24 1:15 pm Activity/Diet/Wound Care/Special Instructions: Instructions 1. Do not begin any exercise program for 3 weeks. 2. Do not resume sexual relations for 6 weeks or longer if uncomfortable. 3. You may take tub baths or showers at any time. 4. You may use tampons if desired after 6 weeks. 5. Keep any areas repaired with stitches clean and dry. 6. If you are not nursing, wear a good fitting, supportive bra during the day and limit fluid intake for at least 1 week to prevent breast engorgement. 7. Call the office, , within the next week to make appointment for your 6 week checkup if it has not already been made. 8. Report any of the following occurrences to the doctor promptly: a. Heavy, excessive bleeding b. Chills, fever c. Burning or frequency of urination d. Pain or redness and breasts if nursing e. Increasing pain or swelling of vulva (stitches). In addition to the above instructions, the following additional should be followed: 1. No heavy lifting or straining (exercising) until after 6 week checkup. 2. Keep abdominal incision clean and dry: You may wear a dressing if more comfortable. 3. Make office appointment for 2 weeks after delivery date. Discharge Disposition: HOME SELF-CARE
== END 2024-01-04 12:21 | disposition home or self-care (01) | DRG 788 ==
LOC: 4FBP 05:47
PROVIDERS: ADMIT Obstetrics & Gynecology; ATTEND Obstetrics & Gynecology
PROC: 10907ZC Drainage of Amniotic Fluid, Therapeutic from Products of Conception, Via Natural or Artificial Opening (ICD-10-PCS; 2024-01-02)
PROC: 10D00Z1 Extraction of Products of Conception, Low, Open Approach (ICD-10-PCS; principal; 2024-01-02 20:36)
DX: O99.892 Other specified diseases and conditions complicating childbirth (principal); O75.0 Maternal distress during labor and delivery; O99.344 Other mental disorders complicating childbirth; O32.8XX0 Maternal care for other malpresentation of fetus, not applicable or unspecified; F32.A Depression, unspecified; F41.9 Anxiety disorder, unspecified; R00.0 Tachycardia, unspecified; Z3A.39 39 weeks gestation of pregnancy; Z37.0 Single live birth; Z79.82 Long term (current) use of aspirin; Z79.899 Other long term (current) drug therapy
CPT/HCPCS: 85025; 86850; 86900; 86901; 90707